=== PATIENT | female | born 1980 | race African-American/Black ===

== ENCOUNTER 2017-12-24 20:48 | Emergency (ER) | payer SELFPAY ==
[~2017-12-24] VITALS: Ht 152.4 cm; Wt 80.9 kg
[~2017-12-24 20:48] MED LIST: FLINTSTONE VITAMINS PO; Feosol PO; METHadone HCl PO; Percocet 5/325,Endoc PO; Proventil,Ventolin H IH; Tums,OsCal PO; Tylenol Extra Streng PO
[2017-12-24 22:56] LABS: HEMATOCRIT 28.1 % (36.0-46.0); MCH 20.7 PG (29.0-34.0); MCHC 28.5 G/DL (30.0-36.0); MCV 72.6 FL (83-99); PLATELET COUNT 304 K/uL (156-360); RBC DIS.WIDTH-CV 16.6 % (11.8-14.6); RBC DIS.WIDTH-SD 42.7 % (39-53); RED BLOOD COUNT 3.87 M/uL (3.80-5.20); WHITE BLOOD COUNT 4.9 K/uL (4.1-10.2)
[2017-12-24 22:57] LABS: ALBUMIN 3.4 g/dL (3.2-4.8); CHLORIDE 107 mEq/L (99-109); POTASSIUM 3.5 mEq/L (3.7-5.4); SODIUM 139 mEq/L (136-147)
[2017-12-24 22:59] LABS: GLUCOSE 104 mg/dL (70-99)
[2017-12-24 23:01] LABS: TOTAL BILIRUBIN 0.2 mg/dL (0.0-1.0)
[2017-12-24 23:03] LABS: ALKALINE PHOSPHATASE 48 IU/L (3-129); CREATININE 0.8 mg/dL (0.6-1.3); GFR ESTIMATE (CALCULATED) > 59 mL/min/
[2017-12-24 23:04] LABS: UREA NITROGEN (BUN) 7 mg/dL (9-23)
[2017-12-24 23:05] LABS: AST (GOT) 17 IU/L (2-34)
[2017-12-24 23:06] LABS: ALT (GPT) 11 IU/L (3-49)
[2017-12-25] MEDS ORDERED: PERCOCET 5/31 TABLET PO (00:05)
[2017-12-25] MEDS ORDERED: BACTRIM,SEPT1 TABLET PO (00:05)
[2017-12-25] MEDS ORDERED: KEFLEX500 MG PO (00:22)
[2017-12-25 00:36] VITALS: BP 123/81
== END 2017-12-25 01:01 | disposition home or self-care (01) ==
LOC: EME 20:48
PROVIDERS: Physician Assistant
DX: S11.91XD Laceration without foreign body of unspecified part of neck, subsequent encounter (principal); D64.9 Anemia, unspecified; X99.9XXD Assault by unspecified sharp object, subsequent encounter; Z88.0 Allergy status to penicillin; F17.200 Nicotine dependence, unspecified, uncomplicated
CPT/HCPCS: 80053; 85027; 99281; 99284